=== PATIENT | female | born 1995 | race Caucasian/White ===

== ENCOUNTER 2017-12-25 22:00 | Emergency (ER) | payer OTHER ==
[~2017-12-25] VITALS: Ht 154.9 cm; Wt 57.0 kg
[2017-12-25 22:11] VITALS: BP 126/70; PULSE 72; RESP 16; TEMP 98.2; O2SAT 100
[2017-12-25] MEDS ORDERED: ACETAMINOPHEN/HYDROcodone 325 MG/5 MG TAB PO ONE (23:30)
[2017-12-25] MEDS ORDERED: BIRTH CONTROL PO (23:40)
--- NOTE | 2017-12-25 23:58 | RADRPT ---
EXAM DATE/TIME: 12/25/2017 23:28 [place] COMPARISON: No previous studies available for comparison. INDICATIONS : Pt rolled ankle on pole vault mat yesterday. Pain and swelling to lateral ankle MEDICAL HISTORY : None. SURGICAL HISTORY : None. ENCOUNTER: Initial ACUITY: 2 days PAIN SCORE: 8/10 LOCATION: Right Ankle FINDINGS: Three view exam was performed of the right ankle. The bony structures are in normal alignment. No e vidence of fracture or dislocation. The ankle mortise is intact. Mild soft tissue swelling about th e lateral aspect of the ankle. No radiopaque foreign bodies are seen. Bony mineralization is normal . CONCLUSION: Lateral soft tissue swelling. No fracture seen. Willis Harris MD on December 25, 2017 at 23:56 Board Certified Radiologist. This report was verified electronically.
--- NOTE | 2017-12-26 00:18 | PD ---
HPI Chief Complaint: Injury Time Seen by Provider: 23:15 Travel History International Travel<30 days: No Contact w/Intl Traveler<30days: No Traveled to known affect area: No History of Present Illness HPI Patient is a 22-year-old female who comes in complaining of right ankle pain. She says yesterday while at her track practice, she inverted her ankle. She went to the warehouse trainer who applied an Montrell wrap and gave her crutches. She says she continues to have pain and swelling. She denies any other injuries. She has taken ibuprofen without much relief of her pain. Severity is mild to moderate. PFSH Past Medical History Asthma: Yes (EXERCIZED INDUCED) Diabetes: No Patient Takes Glucophage: No Diminished Hearing: No Respiratory: Yes Immunizations Current: Yes Tetanus Vaccination: < 5 Years Influenza Vaccination: No ?: Not LMP: 12/20/17 : 0 Past Surgical History Ear Surgery: Yes (TUBES) Tonsillectomy: Yes Social History Alcohol Use: No Tobacco Use: No Substance Use: No Allergies-Medications (Allergen,Severity, Reaction): Coded Allergies: No Known Allergies (Unverified , 12/25/17) Reported Meds & Prescriptions Reported Meds & Active Scripts Active Reported [ Control] 1 PO DAILY Review of Systems General / Constitutional: No: Fever, Chills HENT: No: Headaches, Lightheadedness Cardiovascular: No: Chest Pain or Discomfort Respiratory: No: Shortness of Breath Gastrointestinal: No: Nausea, Vomiting Musculoskeletal: Positive: Limited ROM, Edema, Pain Skin: No Rash, No Lesions Neurologic: No: Weakness, Dizziness Physical Exam Narrative GENERAL: Awake and alert, in no acute distress. SKIN: Focused skin assessment warm/dry. HEAD: Atraumatic. Normocephalic. EYES: Pupils equal and round. No scleral icterus. ENT: Mucous membranes pink and moist. CARDIOVASCULAR: Regular rate and rhythm. No murmur appreciated. RESPIRATORY: No accessory muscle use. Clear to auscultation. Breath sounds equal bilaterally. MUSCULOSKELETAL: No obvious deformities. No clubbing. No cyanosis. Swelling of the right ankle. Tender to palpation of the medial and lateral malleolus. There is ecchymosis around the lateral malleolus. She is able to wiggle her toes. Pedal pulses intact. NEUROLOGICAL: Awake and alert. No obvious cranial nerve deficits. Motor grossly within normal limits. Normal speech. Data Data Last Documented VS Vital Signs Date Time Temp Pulse Resp B/P (MAP) Pulse Ox O2 Delivery O2 Flow Rate FiO2 12/25/17 22:11 98.2 72 16 126/70 (88) 100 Room Air Orders Orders Ankle, Complete ([id number]) (12/25/17 ) Acetamin-Hydrocod 325-5 Mg ([place] 5-325 (12/25/17 23:30) Montrell Bandage (12/26/17 00:13) MDM Medical Decision Making Medical Screen Exam Complete: Yes Emergency Medical Condition: Yes Differential Diagnosis Ankle fracture versus ankle sprain versus fracture Narrative Course Patient is a 22-year-old female who comes in complaining of pain and swelling to her right ankle. Exam shows swelling and ecchymosis of the ankle. X-ray performed shows no acute fracture. Patient advised this may be a ligamentous tear. She is given an Montrell bandage, she already has crutches. She is advised to follow-up with her doctors. Advised to take ibuprofen as needed for pain. Advised to stay off of her ankle and avoid physical activity for the next few weeks. Advised return to the ED as needed for any worsening symptoms. Diagnosis Primary Impression: Ankle sprain Qualified Codes: S93.401A - Sprain of unspecified ligament of right ankle, initial encounter Referrals: Soto Adler Jr., MD call for appointment Patient Instructions: Ankle Sprain (ED), General Instructions Additional Instructions: Follow-up with orthopedics. Avoid physical activity for the next few weeks. Take ibuprofen as needed for pain. Return to the ED as needed for any worsening symptoms. Disposition: 01 DISCHARGE HOME Condition: Stable Shruti Gotti MD Dec 26, 2017 00:17
== END 2017-12-26 00:38 | disposition home or self-care (01) ==
LOC: NEPD 22:00
DX: S93.401A Sprain of unspecified ligament of right ankle, initial encounter (principal); J45.909 Unspecified asthma, uncomplicated; X50.1XXA Overexertion from prolonged static or awkward postures, initial encounter
CPT/HCPCS: 73610; 99283